=== PATIENT | male | born 1940 | race Caucasian/White ===

== ENCOUNTER → 2020-05-12 | Outpatient (CLI) | payer OTHER | LOC: GMAJ 17:18 | PROVIDERS: ATTEND Family Medicine | DX: R53.83 Other fatigue (principal); E78.00 Pure hypercholesterolemia, unspecified; I47.1 Supraventricular tachycardia ==

== ENCOUNTER → 2020-05-18 | Outpatient (CLI) | payer OTHER ==
--- NOTE | 2020-05-18 16:45 | CT ---
EXAM DESCRIPTION: Chest w/o Contrast CLINICAL HISTORY: 79 years, Male, nicotine dependence COMPARISON: None TECHNIQUE: Thin-section noncontrast axial CT images are obtained according to our protocol. Reconstructed MPR images are created and reviewed as well. FINDINGS: Lungs: Discoid atelectasis or linear scarring in the right middle lobe, lingula and left lower lobe. Minimal groundglass infiltrate or microatelectasis in the lower lobes bilaterally. Lung cyst in the right lower lobe and in the right middle lobe. In the upper lobes, there is moderate centrilobular emphysematous change with lesser paraseptal emphysema. No worrisome pulmonary mass or nodule. No broader area of consolidation to suggest pneumonia. Mediastinum: Lymph nodes are normal in size. Normal vascular contours. Heart size is normal with no pericardial effusion. Moderate coronary calcification. Chest wall/axilla: No mass or adenopathy. Lower neck/supraclavicular: No mass or adenopathy. Normal thyroid gland. 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 Tiny 2 mm calculus in the upper right kidney without hydronephrosis. Otherwise unremarkable upper abdominal viscera. IMPRESSION: No evidence of primary pulmonary malignancy. Moderate emphysematous changes. No consolidating infiltrate to suggest pneumonia. This exam was performed according to our departmental dose-optimization program, which includes automated exposure control, adjustment of the mA and/or kV according to patient size and/or use of iterative reconstruction technique. Total DLP equals 606.37 mGycm. Electronically signed by: Jamie Sarmiento MD 05/18/2020 4:43 PM [employer]
== END ==
LOC: CT 13:18
PROVIDERS: ATTEND Family Medicine
DX: F17.299 Nicotine dependence, other tobacco product, with unspecified nicotine-induced disorders (principal); J43.9 Emphysema, unspecified